=== PATIENT | female | born 1985 | race Caucasian/White ===

== ENCOUNTER 2017-07-09 17:14 | Emergency (ER) | payer OTHER ==
--- NOTE | 2017-07-09 17:51 | ED SKIN/ALLERGY COMPLAINT ---
History of Present Illness General Chief Complaint: Allergy Symptoms Stated Complaint: ALLERGIC REACTION Source: patient, FRIEND Exam Limitations: no limitations Vital Signs & Intake/Output Vital Signs & Intake/Output Vital Signs Date Time Temp Pulse Resp B/P B/P Pulse O2 O2 Flow FiO2 Mean Ox Delivery Rate 07/09 1934 98.1 82 18 120/71 99 Room Air 07/09 1732 100 Room Air 07/09 1720 98.0 94 22 117/79 100 Room Air Triage Note: PT BIBA FROM [facility] AFTER ALLERGIC REACTION. PER EMS AND PT, PT WAS AT A LOCAL [facility] AND TOLD STAFF THAT SHE HAS AN ALLERGY TO CILANTRO. THERE WAS CILANTRO IN HER MEAL AND PT BEGAN TO EXPERIENCE SOB, FELT THOUGH HER "THROAT WAS CLOSING". PT RECEIVED IM EPIPEN TO LEFT THIGH ON SITE. WHEN IN AMBULANCE, PT C/O CHEST HEAVINESS AND "INABILITY TO SPEAK". PT RECEIVED 50MG IV BENADRYL EN ROUTE TO #22 ESTABLISHED BY EMS. PT ARRIVES A&O, RAPID SPEECH, SOMEWHAT ANXIOUS, VSS Triage Nurses Notes Reviewed? yes Onset: AT 4:30PM Duration: minute(s):, constant, gone now Timing: single episode today Severity: severe : No Patient currently breastfeeds: No HPI: Patient presents for evaluation of a severe allergic reaction to cilantro. Patient states that she was at the [facility] all restaurant and began feeling her mouth tingling. This was followed by throat tightness and choking. She felt her head go back and the onset of the facial rash. Unfortunately she was given an EpiPen by the paramedics along with 50 mg of IV Benadryl with a good response. Currently she has no specific complaint. (Marialuisa SALDAÑA,Farooq Arceo) Reconcile Medications Hydroxyzine Pamoate 50 MG CAPSULE 1 CAP PO TID PRN ALLERGIC REACTION Methylprednisolone. (Medrol) 4 MG TAB.DS.PK 1 DP PO AD ALLERGIC REACTION 6 on day 1 then reduce by one tablet daily until gone (Carlos Alberto SALDAÑA,Saulo Reynolds) Past History Travel History Traveled to [place] past 21 day No Medical History Any Pertinent Medical History? see below for history Cardiovascular: hyperlipidemia Respiratory: asthma Psychiatric: anxiety Endocrine: diabetes Surgical History Surgical History: non-contributory Psychosocial History What is your primary language Russian Tobacco Use: Quit >30 days ago ETOH Use: occasional use Family History Hx Contributory? No (Marialuisa SALDAÑA,Farooq Arceo) Review of Systems Review of Systems Constitutional: Reports: no symptoms. EENTM: Reports: see HPI. Respiratory: Reports: no symptoms. Cardiovascular: Reports: no symptoms. GI: Reports: no symptoms. Genitourinary: Reports: no symptoms. Musculoskeletal: Reports: no symptoms. Skin: Reports: see HPI. Neurological/Psychological: Reports: no symptoms. Hematologic/Endocrine: Reports: no symptoms. Immunologic/Allergic: Reports: no symptoms. All Other Systems: Reviewed and Negative (Marialuisa SALDAÑA,Farooq Arceo) Physical Exam Physical Exam General Appearance: SEE BELOW (Farooq Elam MD) Progress Plan of Care: Current Medications Sig/Lukasz Start time Last Medication Dose Stop Time Status Admin Acetaminophen 975 MG ONCE ONE 07/09 2099 UNVr 07/09 (Tylenol) 07/09 Comments: 07/09/2017 7:27:05 PM patient signed out to Dr. 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 (Marialuisa SALDAÑA,Farooq Arceo) Differential Diagnosis: allergic reaction, anaphylaxis, angioedema, contact dermatitis, urticaria (Carlos Alberto SALDAÑA,Saulo Reynolds) Departure Departure Condition: Stable Departure Forms: Customer Survey General Discharge Information (Marialuisa SALDAÑA,Farooq Arceo) Departure Disposition: HOME OR SELF CARE Clinical Impression Primary Impression: Allergic reaction Prescriptions: Current Visit Scripts Methylprednisolone. (Medrol) 1 DP PO AD #1 DP 6 on day 1 then reduce by one tablet daily until gone Hydroxyzine Pamoate 1 CAP PO TID PRN ALLERGIC REACTION #30 CAP Comments 07/09/17, 21:03... pt feeling well after several hours of observation... clear lungs, no stridor... pt safe for discharge... gave rx for medrol, hydroxyzine. pt also referred to calender worker helper. (Carlos Alberto SALDAÑA,Saulo Reynolds)
[2017-07-09] MEDS ORDERED: MEDROL4 M2 PO (21:03)
[2017-07-09] MEDS ORDERED: HYDROXYZINE PAM50 M1 PO (21:03)
[2017-07-09 21:34] VITALS: BP 118/77
[2017-07-10] MEDS ORDERED: OXYBUTYNIN CHLOR5 M3 PO (03:50)
[2017-07-10] MEDS ORDERED: FLUTICASONE PRO16 GM NASB (03:50)
[2017-07-10] MEDS ORDERED: CLONAZEPAM0.5 M2 PO (03:51)
== END 2017-07-09 21:36 ==
LOC: ERH 17:14
DX: T78.40XA Allergy, unspecified, initial encounter (principal)
CPT/HCPCS: 96374; 96375

== ENCOUNTER 2017-07-20 01:49 | Emergency (ER) | payer OTHER ==
[~2017-07-20] VITALS: Ht 172.7 cm; Wt 111.1 kg
[~2017-07-20 01:49] MED LIST: CLONAZEPAM0.5 M2 PO; FLUTICASONE PRO16 GM NASB; HYDROXYZINE PAM50 M1 PO; MEDROL4 M2 PO; OXYBUTYNIN CHLOR5 M3 PO
--- NOTE | 2017-07-20 01:56 | ED PSYCHIATRIC COMPLAINT ---
History of Present Illness General Chief Complaint: Psychiatric Related Complaint Stated Complaint: BIBA, +SI Source: patient, old records, EMS Exam Limitations: no limitations Vital Signs & Intake/Output Vital Signs & Intake/Output Vital Signs Date Time Temp Pulse Resp B/P B/P Pulse O2 O2 Flow FiO2 Mean Ox Delivery Rate 07/20 854 97.1 64 20 100/70 99 07/20 0622 98.1 86 18 105/69 98 Room Air 07/20 0427 98.3 99 18 108/70 98 Room Air Allergies Coded Allergies: amoxicillin (RASH 07/10/17) azithromycin (HIVES 07/10/17) Uncoded Allergies: CELANTRO (ANAPHALYSIS 07/10/17) Reconcile Medications Clonazepam 0.5 MG TABLET 1 TAB PO TIDPRN ANXIETY (Reported) Fluticasone Propionate 50 MCG/ACTUATION SPRAY.SUSP 2 SPRAY NASB DAILY CONGESTION (Reported) Hydroxyzine Pamoate 50 MG CAPSULE 1 CAP PO TID PRN ALLERGIC REACTION Methylprednisolone. (Medrol) 4 MG TAB.DS.PK 1 DP PO AD ALLERGIC REACTION 6 on day 1 then reduce by one tablet daily until gone Oxybutynin Chloride (Oxybutynin Chloride ER) 5 MG TAB.ER.24 1 TAB PO DAILY ANXIETY (Reported) Triage Nurses Notes Reviewed? yes HPI: Patient brought in on a police paper for suicidal comments. Patient broke up with her girlfriend. Patient took 4 Klonopin. Patient states that she was instructed that she could take up to 4 she wanted to. Patient told the police that she did not want to be around anymore and wanted to go to a better place. Patient was sent in for evaluation. Patient is very agitated upon arrival to the emergency room. (Tala SALDAÑA,Adrian Roberts) Past History Travel History Traveled to [place] past 21 day No Medical History Any Pertinent Medical History? see below for history Neurological: NONE EENT: NONE Cardiovascular: hyperlipidemia Respiratory: asthma Gastrointestinal: NONE Hepatic: NONE Renal: NONE Musculoskeletal: NONE Psychiatric: anxiety Endocrine: diabetes Surgical History Surgical History: non-contributory Psychosocial History What is your primary language Mauritanian Tobacco Use: Refused to answer Family History Hx Contributory? No (Tala SALDAÑA,Adrian Roberts) Review of Systems Review of Systems Constitutional: Reports: no symptoms. EENTM: Reports: no symptoms. Respiratory: Reports: no symptoms. Cardiovascular: Reports: no symptoms. GI: Reports: no symptoms. Genitourinary: Reports: no symptoms. Musculoskeletal: Reports: no symptoms. Skin: Reports: no symptoms. Neurological/Psychological: Reports: see HPI, depressed. Hematologic/Endocrine: Reports: no symptoms. Immunologic/Allergic: Reports: no symptoms. All Other Systems: Reviewed and Negative (Tala SALDAÑA,Adrian Roberts) Physical Exam Physical Exam General Appearance: well developed/nourished, mild distress Head: atraumatic Eyes: Bilateral: PERRL, EOMI. Ears, Nose, Throat: normal pharynx, normal ENT inspection, hearing grossly normal Neck: normal inspection, supple Respiratory: normal breath sounds Cardiovascular: regular rate/rhythm Gastrointestinal: soft, non-tender Extremities: normal range of motion Neurological/Psychiatric: no motor/sensory deficits, awake, agitated, alert, oriented x 3 Appearance/Memory/Insight: appropriate appearance, denies illness Behavoir/Eye Contact/Speech: uncooperative Thoughts/Hallucinations: normal thought pattern, no apparent hallucination Skin: intact, normal color, warm/dry SAD PERSONS Done? CRISIS CONSULT OBTAINED (Tala SALDAÑA,Adrian Roberts) Progress Differential Diagnosis: drug intoxication, drug overdose, drug withdrawal, electrolyte abnormality Plan of Care: Orders Procedure Date/time Status Regular Diet 07/20 B Active Continuous Observation Monitor 07/20 1900 Active Continuous Observation Monitor 07/20 1500 Active Continuous Observation Monitor 07/20 1100 Active Continuous Observation Monitor 07/20 0700 Active Continuous Observation Monitor 07/20 015 Active URINE DRUGS OF ABUSE 07/20 015 Complete URINALYSIS 07/20 154 Complete HUMAN BETA HCG SCREEN 07/20 154 Complete ETHANOL 07/20 154 Complete COMPREHENSIVE METABOLIC PANEL 07/20 154 Complete CBC WITHOUT DIFFERENTIAL 07/20 154 Complete ED CRISIS PSYCH CONSULT 07/20 015 Active Laboratory Tests 07/20/17 0928: Urine Opiates Screen < 100.00, Methadone Screen < 40, Barbiturate Screen < 60, Ur Phencyclidine Scrn < 6.00, Amphetamines Screen > 1450 H, U Benzodiazepines Scrn < 85, Urine Cocaine Screen < 50, Urine Cannabis Screen < 5.00, Urine Color YEL, Urine Clarity CLEAR, Urine pH 5.5, Ur Specific [place] >= 1.030, Urine Protein NEG, Urine Ketones NEG, Urine Nitrite NEG, Urine Bilirubin NEG, Urine Urobilinogen 0.2, Ur Leukocyte Esterase NEG, Ur Microscopic SEDIMENT EXAMINED, Urine RBC 1-3, Ur Epithelial Cells MANY H, Urine Bacteria MOD H, Urine Mucus FEW, Urine Hemoglobin TRACE-INTACT, Urine Glucose NEG 07/20/17 0907: Anion Gap 15, Estimated GFR > 60, BUN/Creatinine Ratio 22.0, Glucose 119 H, Calcium 9.1, Total Bilirubin 0.3, AST 16, ALT 37, Alkaline Phosphatase 71, Total Protein 6.3, Albumin 3.7, Globulin 2.6, Albumin/Globulin Ratio 1.4, Total Beta HCG NEGATIVE, CBC w Diff NO MAN DIFF REQ, RBC 4.56, MCV 84.3, MCH 28.0, MCHC 33.2, RDW 13.6, MPV 7.0 L, Gran % 68.0, Lymphocytes % 23.7, Monocytes % 7.2, Eosinophils % 0.8, Basophils % 0.3, Absolute Granulocytes 5.8, Absolute Lymphocytes 2.0, Absolute Monocytes 0.6, Absolute Eosinophils 0.1, Absolute Basophils 0, Serum Alcohol < 10.0 Hand-Off Endorsed To: Landon Garcia MD Endorsed Time: 0700 Pending: consult (Tala SALDAÑA,Adrian Roberts) Comments: Cleared by psychiatry for discharge (Landon Garcia MD) Departure Departure Condition: Stable Clinical Impression Primary Impression: Depression Referrals: Yeny Saini MD (PCP/Family) (Adrian Edgar MD) Departure Time of Disposition: 1210 Disposition: HOME OR SELF CARE Additional Instructions: Follow up with the recommendations of the psychiatric rn. Departure Forms: General Discharge Information (Landon Garcia MD)
[2017-07-20 09:18] LABS: ABSOLUTE BASOPHIL COUNT 0 /CUMM (0.0-0.2); ABSOLUTE EOSINOPHIL COUNT 0.1 /CUMM (0.0-0.7); ABSOLUTE GRANULOCYTE CT 5.8 /CUMM (1.4-6.5); ABSOLUTE MONOCYTE COUNT 0.6 /CUMM (0.10-0.60); BASOPHIL % 0.3 % (0.0-2.0); EOSINOPHIL % 0.8 % (0-5); HEMATOCRIT 38.4 % (37-47); MEAN CORPUSCULAR HGB CONC 33.2 G/DL (33.0-37.0); MEAN CORPUSCULAR VOLUME 84.3 FL (81.0-99.0); PLATELET COUNT 277 /CUMM (130-400); RBC DISTRIBUTION WIDTH 13.6 % (11.5-14.5); RED BLOOD CELL CT 4.56 /CUMM (4.20-5.40); WHITE BLOOD CELL COUNT 8.5 /CUMM (4.8-10.8)
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
[2017-07-20 12:17] VITALS: BP 140/73
--- NOTE | 2017-07-20 14:58 | ED PSYCHIATRIST/APRN CONSULT ---
Psychiatrist/CAUSTIC CRESYLATE SHIFT SUPERINTENDENT ED Consult Assessment and Plan: 32 yo luther female, mother of 5 yo D., domiciled, who broke up with her GF yesterday. The latter called the Police after the patient allegedly made a suicidal statement. For more details relative to the patient's arrival into the emergency room please refer to the banquet attendant's assessment. We interviewed the patient. Claudine was sitting on a gurney in the hallway of the emergency room. She was very fidgety. She is a short statured, overweight Causian female, with crew cut hair, remarkable green eyes, strabismus, dressed in hospital issued blue paper scrubs. She is cooperative with the interview even though irritated. She says: "I have autism. This things bother me"referring to the paper scrubs. The patient's speech is well articulated, goal directed, average in rate, volume and tone. The patient describes her mood as anxious because of the situation she is in. Her affect is quite variable but appropriate to the situation and content. Her thought processes are linear, there is no overt psychosis, no delusional ideation, no paranoia, no ideas of reference, no intrusive/obsessive thoughts. Claudine is able to attentively follow the interview, answered the questions appropriately, she has intact memory, she is oriented to time, place, person and situation. The patient states, and also believes, that she will never hurt herself or anybody else. She admits that the breakup with her girlfriend was upsetting and shocking, nevertheless her 5-year-old daughter is her protective factor. Claudine says that she adores her daughter and would never leave her without a mother. The patient reports that she has been diagnosed with Autism, attention deficit hyperactivity disorder and severe anxiety. The diagnoses is confirmed by the patient's providers at [facility]. The patient has good insight and judgment and is motivated for treatment. She likes her treaters and is willing to continue seeing them. Claudine suffers from hyper lipidemia and bronchial asthma, condition is stable with the aid of medication(managed by PCP-Dr. Philippe) The patient has an appointment at [facility] on July 22, 2017 which she intends on attending. She continues to live with her girlfriend who does not object to her returning home. It is our clinical judgment that the patient is not a danger to herself or others at this time. She is discharged home with f/u at [facility].
== END 2017-07-20 12:27 ==
LOC: ERH 01:49
PROVIDERS: Emergency Medicine
DX: F32.9 Major depressive disorder, single episode, unspecified (principal)
CPT/HCPCS: 80307; 81001; G0463; G0480

== ENCOUNTER 2017-07-25 20:10 | Emergency (ER) | payer OTHER ==
--- NOTE | 2017-07-25 20:14 | ED PSYCHIATRIC COMPLAINT ---
See Addendum History of Present Illness General Chief Complaint: Psychiatric Related Complaint Stated Complaint: BIBA FOR EVAL OF OVERDOSE AND +SI Source: patient, old records Exam Limitations: no limitations Vital Signs & Intake/Output Vital Signs & Intake/Output Vital Signs Date Time Temp Pulse Resp B/P B/P Pulse O2 O2 Flow FiO2 Mean Ox Delivery Rate 07/27 1107 98.1 82 18 117/69 97 Room Air 07/27 0831 97.9 73 18 120/67 98 Room Air 07/27 0601 97.7 71 20 150/88 100 Room Air 07/27 0106 97.2 78 16 109/72 98 Room Air 07/26 1846 97.0 80 20 112/72 98 Room Air 07/26 1611 97.1 84 20 109/74 99 Room Air Allergies Coded Allergies: amoxicillin (RASH 07/10/17) azithromycin (HIVES 07/10/17) Uncoded Allergies: CELANTRO (ANAPHALYSIS 07/10/17) Triage Nurses Notes Reviewed? yes Onset: Abrupt Duration: day(s): (1), constant Timing: single episode today Severity: mild Severity Numbers: 1 Associated Symptoms: stress at home- father is sick, and losing daughter to [facility] HPI: 32 yo female with autism , anxiety, PTSD and ADHD BIBA on PEER for evaluation after the patient apparently according to the girlfriend took several of her indications an attempt to harm herself. On arrival the patient presents alert awake and oriented 3. She states she took one 0.5 Klonopin and her Abilify and that her girlfriend is lying about what she is doing. The patient states she's been under increased stress as her father is sick however she denies suicidal ideation or homicidal ideation. No hallucinations. She is an appointment with her psychiatrist tomorrow. She was recently seen here last week after making suicidal statements. She denies any nausea vomiting chest pain shortness of breath. She is otherwise on adderall abilify and klonopin. Per PEER and police that were on scene pt made comments to her girlfriend that she was going to take all of her medications and drive herself and her daughter into a river. -per ems and police in [place], pts girlfriend stated she has not been caring for or feeding her daughter [facility]. Child is on way to er to be seen and evaluated by [facility] pt denies making comment (Jhony Manley) Reconcile Medications Aripiprazole (Abilify) 5 MG TABLET 1 TAB PO QHS DEPRESSION (Reported) Atorvastatin Calcium 40 MG TABLET 1 TAB PO DAILY CHOLESTEROL (Reported) Clonazepam 0.5 MG TABLET 1 TAB PO BID ANXIETY (Reported) Dextroamphetamine/Amphetamine (Adderall XR 10 MG Capsule) 10 MG CAP.ER.24H 1 CAP PO QAM ANXIETY (Reported) Loratadine (Claritin) 10 MG TABLET 1 TAB PO DAILY ALLERGIES (Reported) Metformin HCl (Metformin HCl ER) 500 MG TAB.ER.24H 1 TAB PO DAILY DM ( Reported) Oxybutynin Chloride (Oxybutynin Chloride ER) 5 MG TAB.ER.24 1 TAB PO DAILY URINE (Reported) Varenicline Tartrate (Chantix) 1 MG TABLET 1 MG PO D QUIT SMOKING (Reported) (Farooq Ramires DO) Past History Travel History Traveled to [place] past 21 day No Medical History Any Pertinent Medical History? see below for history Neurological: NONE EENT: NONE Cardiovascular: hyperlipidemia Respiratory: asthma Gastrointestinal: NONE Hepatic: NONE Renal: NONE Musculoskeletal: NONE Psychiatric: anxiety Endocrine: diabetes Surgical History Surgical History: non-contributory Psychosocial History Who do you live with Other (see notes) What is your primary language Czech Family History Hx Contributory? No (Jhony Manley) Review of Systems Review of Systems Constitutional: Reports: see HPI. Comments Review of systems: See HPI, All other systems negative. Constitutional, no chills no fever, HEENT: no sore throat no congestion Cardiovascular: No chest pain , no palpitation Skin: no rashes, no change in skin Respiratory: No dyspnea no cough no sputum GI: No nausea no vomiting, no diarrhea : No dysuria Muscle skeletal: No joint pain, no back pain, no neck pain, Neurologic: , no headache Psych: stress (+) depressed Heme/endocrine: No bruising (Jhony Manley) Physical Exam Physical Exam General Appearance: well developed/nourished, no apparent distress, alert, awake , comfortable Neurological/Psychiatric: no motor/sensory deficits, awake Comments: Well-developed well-nourished person in no acute distress HEENT: Normal EENT exam; PERRL, EOMI,HEAD is atraumatic. moist mucous membranes. Neck: Supple, normal range of motion Back: Full range of motion Cardiovascular: Regular rate and rhythms no murmur Respiratory: No respiratory distress. Patient speaking in full complete sentences. Breath sounds clear to auscultation bilaterally: NO W/R/R Abdomen: Soft, nontender Extremity: No edema, full range of motion of extremities Neuro: Alert oriented x3, motor sensory normal, cranial nerves II through XII grossly intact. There were no obvious focal neurologic abnormalities. Skin: No appreciable rash on exposed skin, skin is warm and dry. Psych: Mood and affect is normal, memory and judgment is normal. SAD PERSONS SAD PERSONS Response Value Previous Attempts/Psych Care yes 1 Single//? yes 1 Social Support? has support 0 Total 2 SAD PERSONS Done? yes (Jhony Manley) Progress Differential Diagnosis: drug intoxication, drug overdose, drug withdrawal, electrolyte abnormality, depression Plan of Care: Orders Procedure Date/time Status Continuous Observation Monitor 07/27 1900 Active Continuous Observation Monitor 07/27 1500 Active Continuous Observation Monitor 07/27 1100 Active Continuous Observation Monitor 07/27 0700 Active Patient states she only took 1 Klonopin and 1 Abilify, she denies SI she states this is her girlfriend making of lies about her I discussed with the plan of care and need for labs and crisis evaluation patient is calm and cooperative at this time awake and alert oriented 3. Hand-Off Endorsed To: Carlos Alberto SALDAÑA,Saulo Reynolds Endorsed Time: 0100 Pending: consult (CRISIS) (Jhony Manley) Comments: 07/26/2017 7:31:20 AM patient signed out to me by Dr. Carcamo at shift chart changer. 07/26/2017 8:34:28 PM patient signed out to Dr. Ramires at shift chart changer. (Marialuisa SALDAÑA,Farooq Arceo) Comments: Cleared by psychiatry for discharge. (Landon Garcia MD) Departure Departure Condition: Stable Clinical Impression Primary Impression: Depression Referrals: Yeny Saini MD (PCP/Family) (Jhony Manley) Departure Comments 07/26/17, 7AM... PT SIGNED OUT TO DR. MARIALUISA LACEY/QUALITY ASSISTANT Co-Sign Statement Statement: ED Attending supervision documentation- [] I saw and evaluated the patient. I have also reviewed all the pertinent lab results and diagnostic results. I agree with the findings and the plan of care as documented in the ABHIJIT's/QUALITY ASSISTANT's documentation. [X] I have reviewed the ED Record and agree with the PA's/QUALITY ASSISTANT's documentation. [] Additions or exceptions (if any) to the PAs/QUALITY ASSISTANT's note and plan are summarized below: [] (Saulo Carcamo MD) Departure Comments 07/26/17 8:22 PM She was signed out to me by Dr. Elam. She is pending disposition by crisis. (Farooq Ramires DO) Departure Time of Disposition: 1026 Disposition: HOME OR SELF CARE Additional Instructions: Follow up with the recommendations of the psychiatric np Departure Forms: General Discharge Information (Landon Garcia MD) [] I saw and evaluated the patient. I have also reviewed all the pertinent lab results and diagnostic results. I agree with the findings and the plan of care as documented in the PA's/QUALITY ASSISTANT's documentation. [X] I have reviewed the ED Record and agree with the PA's/QUALITY ASSISTANT's documentation. [] Additions or exceptions (if any) to the PAs/QUALITY ASSISTANT's note and plan are summarized below: [] (Saulo Carcamo MD) Departure Comments 07/26/17 8:22 PM She was signed out to me by Dr. Elam. She is pending disposition by crisis. (Farooq Ramires DO) Departure Time of Disposition: 1026 Disposition: HOME OR SELF CARE Additional Instructions: Follow up with the recommendations of the psychiatric np Departure Forms: General Discharge Information (Landon Garcia MD) Departure Forms: General Discharge Information (Landon Garcia MD)
[2017-07-25 21:35] LABS: ABSOLUTE BASOPHIL COUNT 0 /CUMM (0.0-0.2); ABSOLUTE EOSINOPHIL COUNT 0 /CUMM (0.0-0.7); ABSOLUTE GRANULOCYTE CT 7.3 /CUMM (1.4-6.5); ABSOLUTE LYMPH COUNT 1.6 /CUMM (1.2-3.4); ABSOLUTE MONOCYTE COUNT 0.7 /CUMM (0.10-0.60); BASOPHIL % 0.4 % (0.0-2.0); EOSINOPHIL % 0.4 % (0-5); GRANULOCYTE % 75.3 % (42.2-75.2); HEMATOCRIT 40.9 % (37-47); MEAN CORPUSCULAR HGB 28.2 PG (27.0-31.0); MEAN CORPUSCULAR VOLUME 85.2 FL (81.0-99.0); MEAN PLATELET VOLUME 7.1 FL (7.4-10.4); PLATELET COUNT 292 /CUMM (130-400); RBC DISTRIBUTION WIDTH 13.4 % (11.5-14.5); WHITE BLOOD CELL COUNT 9.6 /CUMM (4.8-10.8)
--- NOTE | 2017-07-26 09:04 | ED PSYCH CRISIS CONSULTATION ---
See Addendum Crisis Consult Basic Assessment Date of Consult: 07/26/17 Responsible Person/Accompanied By: self Insurance Authorization: Insurance #1: Insurance name: [employer] C&A Phone number: Policy number: [id number] Group number: Authorization number: ED Provider: Patient's ED Provider: Jhony Manley Primary Care Physician: Patient's PCP: Yeny Saini MD PCP's Current Psychiatrist: Dr. Cancino- [facility] Chief Complaint: Psychiatric Related Complaint Patient's Quote: "I'm fine. My roommate is crazy" Present Illness: Pt is a 32 year old female BIBA on PEER after her roommate/ex-girlfriend called the police for SI statements that pt denies. PEER states pt was going to go to the grocery store and indulge. It also states that she would "go to her car, take more pills and drive herself into a river with her daughter". It should be noted that Pt was seen by crisis last fabiola, 07/20/17 also on a PEER for SI statement. She was evaluated by supervisor order takers and Dr. Waldrop and discharged with a follow up appointment at [facility] with Dr. Cancino. Pt has a history of 1 suicide attempt at age 18 and was hospitalized subsequently. Today, patient denies SI/HI/AH/VH. Pt reports she is a little more depressed and anxious than normal given that her father is ill and going into [facility] today. She is unaware of his medical issue resulting in the hospital stay. She also reports increased anxiety related to being in the ED and DCF now becoming involved from last night's incident. She reports someone called DCF last night and her five year old daughter is in the custody of her father. She reports someone from the [facility] came to speak with her in the ED but she doesn't remember her name. She reports the current plan is that daughter will reside with her father until DCF creates a safety plan for pt. Pt reports that she has had DCF careline calls made on her before and that she had an active case with her first child. She reports DCF involvement with the child when she was born. She reports there was suspension that she was having the child for someone else, like a surrogate. Furthermore, she reports DCF TPR'd (Termination of Parental Rights) her 1st child as they did not believe she could take care of her. Patient is in treatment at [facility]. Her psychiatrist diagnosed her with Autism, Anxiety, and ADHD. She is prescribed Adderall IR 10mg twice daily and Adderall XR 10 mg QD. She reports she went to [facility] last week but didn't actually have an appointment scheduled like the supervisor order takers told her. She reports she has an appointment this week. Pt reports she believes she has seasonal affect disorder because she can't get outside as much during the winter. When asked if patient ever had her vitamin D checked, she stated yes. She reports her Vitamin D level is low and she was prescribed a high dose of vitamin D for six weeks but has not had her levels checked since starting the vitamin D. Her BAL was zero and utox was positive for amphetamines which is consistant with her prescription for Adderall. Crisis spoke to clinician Shanita from [facility]. She reports that the patient has a follow up appointment with the psychiatrist on July 29 @ 1:00 p.m and another appointment already scheduled for August 25. Pt was last seen by the psychiatrist on May 27, 2017. Shanita reports that pt completed IOP summer and would be able to go back. She reports IOP is from 10 am to 1pm 3 days per week. She stated it could be discussed at her appt this week with the psychiatrist with a likely start date next week if that was the recommendation of the ED. Crisis spoke to Elly from [facility] ( ) as today is a State Holiday and the [facility] Regional Offices are closed. Elly was unable to provide any information about the investigation. However she did note that if the pt is discharged from ED today pt should be reminded that the child should stay with her father until she is able to speak to the DCF worker who will be assigned to the case. She believes the case will be assigned to a DCF worker in the [place] office by 9 a.m. tomorrow, 07/27/17. Crisis consulted with Dr. Livingston patient requires acute psychiatric inpatient treatment due to recurrent SI and 2 ED visits in less than 1 week. Client will be a bed search. Patient's Address: [address] [place] [address] Other Phone Number: Who Do You Live With? Other (see notes) (ex girlfriend/ daughter) Family/Informants Interviewed: spoke to therapist at [facility] and [facility] Allergies - Coded Allergies: amoxicillin (RASH 07/10/17) azithromycin (HIVES 07/10/17) Uncoded Allergies: CELANTRO (ANAPHALYSIS 07/10/17) Current Medications - Scheduled Medications Aripiprazole (Abilify) 5 MG TABLET 1 TAB PO QHS DEPRESSION (Reported) Entered as Reported by Shona Moffett on 07/26/17 0939 Atorvastatin Calcium 40 MG TABLET 1 TAB PO DAILY CHOLESTEROL #60 (Reported) Entered as Reported by Shona Moffett on 07/26/17 0936 Clonazepam 0.5 MG TABLET 1 TAB PO BID ANXIETY #60 (Reported) Entered as Reported by Kianna Velazco on 07/10/17 035 Dextroamphetamine/Amphetamine (Adderall XR 10 MG Capsule) 10 MG CAP.ER.24H 1 CAP PO QAM ANXIETY #30 (Reported) Entered as Reported by Shona Moffett on 07/26/17 0937 Loratadine (Claritin) 10 MG TABLET 1 TAB PO DAILY ALLERGIES (Reported) Entered as Reported by Shona Moffett on 07/26/17 0940 Metformin HCl (Metformin HCl ER) 500 MG TAB.ER.24H 1 TAB PO DAILY DM #90 ( Reported) Entered as Reported by Shona Moffett on 07/26/17 09 Oxybutynin Chloride (Oxybutynin Chloride ER) 5 MG TAB.ER.24 1 TAB PO DAILY URINE #30 (Reported) Entered as Reported by Kianna Velazco on 07/10/17 035 Varenicline Tartrate (Chantix) 1 MG TABLET 1 MG PO D QUIT SMOKING #60 ( Reported) Entered as Reported by Shona Moffett on 07/26/17 09 Laboratory Results: Laboratory Tests 07/25/172109: Anion Gap 15, Estimated GFR > 60, BUN/Creatinine Ratio 15.0, Glucose 91, Calcium 9.6, Total Bilirubin 0.1 L, AST 18, ALT 38, Alkaline Phosphatase 73, Total Protein 7.1, Albumin 4.3, Globulin 2.8, Albumin/Globulin Ratio 1.5, CBC w Diff NO MAN DIFF REQ, RBC 4.80, MCV 85.2, MCH 28.2, MCHC 33.0, RDW 13.4, MPV 7.1 L, Gran % 75.3 H, Lymphocytes % 16.6 L, Monocytes % 7.3, Eosinophils % 0.4, Basophils % 0.4, Absolute Granulocytes 7.3 H, Absolute Lymphocytes 1.6, Absolute Monocytes 0.7 H, Absolute Eosinophils 0, Absolute Basophils 0, Salicylates < 1.0, Acetaminophen < 10.0 L, Serum Alcohol < 10.0 07/25/172037: Urine Opiates Screen < 100.00, Methadone Screen < 40, Barbiturate Screen < 60, Ur Phencyclidine Scrn < 6.00, Amphetamines Screen > 1450 H, U Benzodiazepines Scrn < 85, Urine Cocaine Screen < 50, Urine Cannabis Screen < 5.00 Past History Past Medical History Neurological: NONE EENT: NONE Cardiovascular: hyperlipidemia Respiratory: asthma Gastrointestinal: NONE Hepatic: NONE Renal: NONE Musculoskeletal: NONE Psychiatric: anxiety, depression, Autism, ADHD Endocrine: diabetes Past Surgical History Surgical History: non-contributory Psychosocial History Strengths/Capabilities: pt is compliant with treatment with [facility] Physical Limitations (Interventions): none Psychiatric Treatment History Psych Treatment Psychiatric Treatment Yes Inpatient Treatment Yes Outpatient Treatment Yes Location of Treatment [facility] Reason for Treatment ASD, ADHD, Anxiety, PTSD Dates of Treatment currently in tx at [facility], -2009 Response to Treatment fair Diagnosis by History: ADHD, anxiety, PTSD and autism Substance Use/Abuse History Drug Use/Abuse Substances Used/Abused Yes Substance Used/Abused Cocaine First Use 18 Last Used 18 How much used/taken unk How often a few times For how long 1 year Route of use snort and smoke Substance Abuse Treatment Substance Abuse Treatment Past Substance Abuse [place] No Current Mental Status Mental Status Orientation: Person, Place, Situation Affect: Anxious Speech: Clanging (pt has not taken Adderral toda), Hyper-verbal Neuro-vegetative: Anhedonia Appearance Appearance- Dress/Hygiene: pt presents in hospital attire. She was sleeping on stretcher with sleep mask when crisis woke her up to evaluate her. Pt has short shaved hairstyle and an eyebrow ring. Behaviors Thought Process: Tangential Thought Content: WNL Memory: WNL Insight: Fair SI/HI Risk Assessment Past Suicidal Ideation/Attempts Yes Current Suicidal Ideation/Att No Past Homicidal Ideation/Att: No Current Homicidal Ideation/Attempts No Degree of Intent: None Risk Factors: limited support Lethality Ratin PTSD Checklist PTSD Done? patient declined ED Management Sitter: Yes Restraints: No DSM5/PS Stressors/Medical Prob Diagnosis' (DSM 5, Stressors, Medical): F32.9 Unspecified Depression F41.9 Unspecified Anxiety F90.9 Attention Deficit Hyperactivity Disorder, unspecified Type Self reported- Autism Hx of PTSD Asthma hyperlipidemia Current GAF: 30 Departure Disposition Psych Medical Clearance Date: 07/26/17 Medically Cleared at: 0815 Time Started: 814 Time Ended: 834 Psychiatrist Consulted: Saulo Livingston MD Date Disposition Established: 07/26/17 Time Disposition Established: 114 Plan for Disposition - Modality: Bed Search Rationale for Disposition: Pt to ED on PEER w/ SI. This is the 2nd ED visit on PEER for SI in less than 1 week. Pt has multiple new stressors- father is ill and going into hospital and daughter has been removed by DCF and is with daughter's father. Pt has a previous suicide attempt at age 18. Pt requires inpatient psychiatric treatment for stabalization. Referrals Yeny SALDAÑA,Yeny (PCP/Family)
[2017-07-26] MEDS ORDERED: ATORVASTATIN CA40 M1 PO (09:36)
[2017-07-26] MEDS ORDERED: CHANTIX1 MG PO (09:37)
[2017-07-26] MEDS ORDERED: ADDERALL XR 1010 MG PO (09:37)
[2017-07-26] MEDS ORDERED: METFORMIN HCL500 M4 PO (09:38)
[2017-07-26] MEDS ORDERED: ABILIFY5 M1 PO (09:39)
[2017-07-26] MEDS ORDERED: CLARITIN10 M1 PO (09:40)
[2017-07-27 11:07] VITALS: BP 117/69
== END 2017-07-27 12:29 ==
LOC: ERH 20:10
PROVIDERS: Physician Assistant Medical
DX: F32.9 Major depressive disorder, single episode, unspecified (principal); E11.9 Type 2 diabetes mellitus without complications; Z79.84 Long term (current) use of oral hypoglycemic drugs
CPT/HCPCS: 80307; G0463; G0480; J3101

== ENCOUNTER → 2018-01-17 | Day surgery (SDC) | payer OTHER ==
[~2018-01-17] VITALS: Ht 172.7 cm; Wt 106.6 kg
[~2018-01-17] MED LIST changes: +ABILIFY5 M1 PO; +ADDERALL XR 1010 MG PO; +ATORVASTATIN CA40 M1 PO; +CHANTIX1 MG PO; +CLARITIN10 M1 PO; +METFORMIN HCL500 M4 PO; +PERCOCET 5-3251 EACH PO
--- NOTE | 2018-01-17 11:21 | Operative Report ---
Operative/Inv Procedure Report Surgery Date: 01/17/18 Name of Procedure: right ESWL Pre-Operative Diagnosis: right LP stone 4mm Post-Operative Diagnosis: same Estimated Blood Loss: scant Surgeon/Dining Car Server: Elva Bob MD Anesthesia: local monitored anesthesi Complications: none Condition: table Operative Indication: right renal stone Operative/Procedure Note Note: 32yo female with a hx of kidney stones since she was 16yo. She has never required surgical intervention. She has been having microhematuria and right abd pain recently. CT scan showed a 4mm right LP stone. She tries to drink plenty of water or seltzer. She has no irritative urinary sx. She has no voiding complaints. She has no hx of UTIs. She has a 1/4 ppd smoking hx for 16yrs. She wished to have ESWL to treat her stones. She was given the risks, benefits and alternatives in the office and again in the preop holding area. All questions were answered and she was marked. Patient was taken to the OR and placed in the supine position. She was optimally placed and time out was performed. The stone was easily identified in the LP. IV antibiotics were infused and IV sedation was begun. She had a total of 2500 shocks at a range of power 1-20. She tolerated the well and was transferred to the recovery room in stable condition. The stones were visibly changed at the end of the procedure. Findings: right renal stone visibly changed after ESWL Discharge Disposition: Same Day Admissions
== END ==
LOC: STS 03:40
DX: N20.0 Calculus of kidney (principal); Z87.442 Personal history of urinary calculi; R31.29 Other microscopic hematuria; Z87.891 Personal history of nicotine dependence; N39.41 Urge incontinence; E11.9 Type 2 diabetes mellitus without complications; Z79.84 Long term (current) use of oral hypoglycemic drugs
CPT/HCPCS: J0690; J2250; J2405